=== PATIENT | female | born 1975 | race Caucasian/White ===

== ENCOUNTER → 2019-10-20 | Outpatient (CLI) | payer BC, SELFPAY ==
--- NOTE | 2019-10-20 09:35 | NM_ITS ---
CLINICAL: 44-year-old female with reported history of diffuse arthralgia-fibromyalgia. WHOLE BODY 99m Tc MDP RADIONUCLIDE BONE SCINTIGRAPHY COMPARISON: None available FINDINGS: Following the intravenous administration of 26.8 mCi of 99m Tc MDP, whole body bone images reveal: 1. Increased radiopharmaceutical concentration is identified in the lower cervical spine posteriorly on the left, second lumbar vertebra posteriorly on the right, bilateral knees and shoulders. 2. The remaining skeletal structures are scintigraphically unremarkable with normal-appearing renal images and urinary bladder activity identified. NM/Bone Scan Whole Body IMPRESSION: 1. The increase in radiopharmaceutical concentration identified in the cervical and lumbar spine, right and left knee articulations, shoulders bilaterally is most consistent with early onset degenerative arthritis. 2. There is no definitive typical scintigraphic evidence of large articulation synovial inflammation or trauma-fracture. Electronically Signed: Xiang Acosta DO at 21:47 EDT Tel , Service support ,
== END | disposition home or self-care (01) ==
PROVIDERS: Referring Provider Anesthesiology Pain Medicine; Visit Provider Anesthesiology Pain Medicine
DX: M13.0 Polyarthritis, unspecified (principal)
CPT/HCPCS: 78306